=== PATIENT | female | born 1990 | race Caucasian/White ===

== ENCOUNTER 2024-08-13 15:38 | Emergency (ER) | payer OTHER, SELFPAY ==
[2024-08-13 15:40] VITALS: BP 143/96
--- NOTE | 2024-08-13 15:40 | ED.GENMED ---
ED Provider Triage
<Donna Kessler PA-C - Last Filed: 08/13/24 21:05>
-
Patient seen by provider in Triage?: Seen in Triage
Attestation: A medical screening examination has been initiated by a qualified medical provider. Based on the assessment performed at this time, it has been determined that an emergent medical condition may exist and the patient has been informed
that further medical evaluation and possible additional diagnostic testing may be needed.
HPI: 34yoF here with an allergic reaction. Took first dose of Bactrim at 9:30am this morning. Feels like there is a ball in her throat, feels shaky, and muscle cramping. No rash, vomiting, diarrhea, shortness of breath. Took a children's dose of
Benadryl about an hour ago.
GENERAL: Alert , in no apparent distress
EYE: No visual abnormalities.
NECK: Trachea midline
ENT: No visible abnormalities.
LUNGS: No acute respiratory distress
NEUROLOGICAL: Alert and oriented
SKIN: Skin intact. No visible changes.
MUSCULOSKELETAL: Moving extremities normally
PSYCH: Normal and appropriate interaction.
This is a medical evaluation conducted in person to initiate diagnostic evaluation and provide initial therapeutics. Please see further documentation by the treating clinician.
No signs of anaphylaxis noted on exam. Additional 25mg Benadryl PO ordered.
History of Present Illness
<Donna Kessler PA-C - Last Filed: 08/13/24 21:05>
General
Chief Complaint: Allergic Reaction
Time Seen by Provider: 08/13/24 16:39
<Isaiah Moreno DO - Last Filed: 08/16/24 07:06>
History of Present Illness
History of Present Illness:
TIME OF INITIAL ENCOUNTER: Approximately 4:15 PM
HPI: The patient went to urgent care earlier in the day due to itchiness to the scalp. Bilateral scalp rash was noted and urgent care placed her on Bactrim. They diagnosed her with impetigo. Shortly after she took the Bactrim, she had sensation
of discomfort in the throat. She took Benadryl. Overall she feels improved. Several members of her family were diagnosed with nysf-kdqr-[id number]-mouth disease.
EXAM:
GENERAL: Well appearing in no distress
HEENT: Moist oral mucosa, posterior oropharynx is widely patent, small vesicles noted
CARDIOVASCULAR: No murmurs, normal heart rate (100 on my examination), regular rhythm, No chest wall tenderness
PULMONARY: No respiratory distress, breath sounds are clear and equal
ABDOMEN: Soft with no peritoneal signs, no tenderness
NEUROLOGIC: Excellent strength all extremities, no coordination deficits
PSYCHIATRIC: Appropriate mental status, normal insight and judgement
EXTREMITIES: Nontender, no edema, moves all extremities equally
SKIN: She does have some crusted maculopapular lesions however the lesions are diffuse therefore shingles much less likely
NUMBER AND COMPLEXITY OF PROBLEMS ADDRESSED AT THE ENCOUNTER
� Chronic conditions affecting care: Anxiety, migraines, has had kidney stones
� Acute Exacerbation and/or Progression of Chronic Illness: This is an acute problem
� Differential Diagnosis includes: Medication reaction, impetigo, doubt shingles, no evidence for cellulitis, anaphylaxis
AMOUNT AND/OR COMPLEXITY OF DATA TO BE REVIEWED AND ANALYZED
� I performed an independent evaluation of and my interpretation is:
EKG:
CT:
X-rays:
Laboratory Studies: No indication for lab work
Other:
� Review of other/old records: I reviewed [employer] however no significant old records to review
� Clinical information was obtained by an independent historian: None needed
� Prescriptions/Medications Considered but not given: Offered and considered steroids however the patient has not tolerated steroids in the past�gave prescription and she will decide if she wants to get this filled; considered
epinephrine however the patient symptoms rapidly improved
� Further testing considered but not performed: No indication for lab work
RISK OF COMPLICATIONS AND/OR MORBIDITY OR MORTALITY OF PATIENT MANAGEMENT
� Social determinants of health affecting care:
� Discussion with other providers:
� Escalation of care including admission/observation vs risk of discharge considered: After the reaction to the Bactrim, urgent care had already prescribed Augmentin. I have also added mupirocin. The patient was observed in the
[facility].
ANY OTHER UPDATES:
The patient continues to appear well on reexamination and has no further symptoms to the throat/neck
Past History
<Donna Kessler PA-C - Last Filed: 08/13/24 21:05>
Past History
ED Past Medical History: Psychiatric (Anxiety) and Other (Migraines, Renal calculus, )
ED Past Surgical History: Other (Breast reduction)
Social History
Tobacco: Non-smoker
Alcohol: None
Drug: None
Personal:
Living: with family
Phy Exam
<Isaiah Moreno DO - Last Filed: 08/16/24 07:06>
Physical Exam
Physical Exam:
See HPI
Course
<Donna Kessler PA-C - Last Filed: 08/13/24 21:05>
Orders/Labs/Results
Orders:
Orders
08/13/24 15:46
Diphenhydramine [Benadryl] 25 mg PO NOW STA
08/13/24 16:56
Famotidine [Pepcid] 20 mg PO NOW STA
Vital Signs
Initial and Last Documented VS:
Initial Vital Signs
Temp Pulse Resp BP Pulse Ox
37.1 C 116 20 143/96 99
08/13/24 15:40 08/13/24 15:40 08/13/24 15:40 08/13/24 15:40 08/13/24 15:40
Last Documented Vital Signs
Temp Pulse Resp BP Pulse Ox
37.1 C 116 20 143/96 99
08/13/24 15:40 08/13/24 15:40 08/13/24 15:40 08/13/24 15:40 08/13/24 17:27
<Isaiah Moreno DO - Last Filed: 08/16/24 07:06>
Orders/Labs/Results
Orders:
Orders
08/13/24 15:46
Diphenhydramine [Benadryl] 25 mg PO NOW STA
08/13/24 16:56
Famotidine [Pepcid] 20 mg PO NOW STA
Vital Signs
Initial and Last Documented VS:
Initial Vital Signs
Temp Pulse Resp BP Pulse Ox
37.1 C 116 20 143/96 99
08/13/24 15:40 08/13/24 15:40 08/13/24 15:40 08/13/24 15:40 08/13/24 15:40
Last Documented Vital Signs
Temp Pulse Resp BP Pulse Ox
37.1 C 116 20 143/96 99
08/13/24 15:40 08/13/24 15:40 08/13/24 15:40 08/13/24 15:40 08/13/24 17:27
<Isaiah Moreno, - Last Filed: 08/16/24 07:06>
*Critical Care Note
Total Time (30-74mins, 75-104mins- exclusive of procedures): Not Applicable
ED Attending Note
<Donna Kessler PA-C - Last Filed: 08/13/24 21:05>
-
Portions of this chart may have been created with voice recognition software.� Occasional wrong word or��sound alike� substitutions may have occurred due to the inherent limitations of voice recognition software.
Discharge Plan
Departure
Patient Disposition: Home (Routine Discharge)
Date of Disposition: 08/13/24
Time of Disposition: 16:57
Patient with high blood pressure during this ER visit?: Yes
Discharge Problem:
Allergic reaction, Impetigo
Instructions: Impetigo ED, Sulfa drug allergy
Prescriptions:
New
mupirocin 2 % ointment
1 applic topical TID Qty: 22 0RF
prednisone 20 mg tablet
20 mg PO DAILY Qty: 5 0RF
No Action
multivitamin 1 EACH tablet
1 ea PO DAILY
acetaminophen 325 mg Tablet
650 mg PO Q4HPRN PRN (Reason: mild pain) Qty: 30 0RF
ibuprofen 600 mg Tablet
600 mg PO Q6HPRN PRN (Reason: moderate pain/cramps) Qty: 30 0RF
Activity Restrictions/Additional Instructions:
We gave you dose of Pepcid. You could also take [id number] Pepcid as well as [id number] Benadryl this evening to help further decrease symptoms of allergic reaction. I did send a prescription to your pharmacy for both a low-dose of
prednisone as well as mupirocin. I will leave it up to you if you want to start the prednisone due to the side effects.
Interventions
Interventions:
*Risk Screen - Suicide Last Done: 08/13/24 17:34
*General Assessment Last Done: 08/13/24 15:40
*Neglect/Abuse Screening Last Done: 08/13/24 17:34
*ED COVID-19 Vaccine History Last Done: 08/13/24 17:27
*Nursing Disposition Last Done: 08/13/24 17:34
ED- Cardiac Assessment Last Done: 08/13/24 17:27
ED- Pulmonary Assessment Last Done: 08/13/24 17:27
ED-Skin Assessment Last Done: 08/13/24 17:27
Discharge Date and Time
Discharge Date/Time: 08/13/24 17:35
Print Language: DIVEHI
[2024-08-13] MEDS: BENADRYL 25 MG PO (17:11)
[2024-08-13] MEDS: PEPCID 20 MG PO (17:11)
== END 2024-08-13 17:35 | disposition home or self-care (01) ==
LOC: EMR 15:38
PROVIDERS: EMERGENCY PHYSICIAN Emergency Medicine; FAMILY PHYSICIAN Student in an Organized Health Care Education/Training Program
DX: T78.40XA Allergy, unspecified, initial encounter (principal); X58.XXXA Exposure to other specified factors, initial encounter; L01.00 Impetigo, unspecified
CPT/HCPCS: 99283